=== PATIENT | male | born 1985 | race Hispanic/Latino ===

== ENCOUNTER 2021-04-08 03:43 | Emergency (ER) | payer SELFPAY ==
[2021-04-08 04:10] LABS: BASOPHILS % (AUTO) 0.6 % (0.0-5.0); EOSINOPHILS % (AUTO) 9.4 % (0.0-8.0); HEMATOCRIT 44.6 % (42-54); LYMPHOCYTES % (AUTO) 41.8 % (21.0-51.0); MEAN CORPUSCULAR HEMOGLOBIN 30.6 pg (27.0-33.0); MEAN CORPUSCULAR VOLUME 92.9 fL (79-99); MONOCYTES % (AUTO) 7.8 % (3.0-13.0); NEUTROPHILS % (AUTO) 40.1 % (40.0-77.0); PLATELET COUNT (AUTO) 301 K/uL (130-400); RED CELL DISTRIBUTION WIDTH 13.2 % (11.0-15.5); WHITE BLOOD COUNT (AUTO) 10.9 K/uL (4.8-10.8)
[2021-04-08 04:12] LABS: APPEARANCE,URINE Clear (CLEAR); BILIRUBIN,URINE Negative (NEGATIVE); COLOR,URINE Yellow (YELLOW); GLUCOSE, URINE (UA) Negative (NEGATIVE); KETONES,URINE Negative (NEGATIVE); LEUKOCYTE ESTERASE ,URINE Negative (NEGATIVE); NITRATE,URINE Negative (NEGATIVE); OCCULT BLOOD,URINE Trace (NEGATIVE); PH,URINE 5.5 (5.0-8.0); PROTEIN,URINE Negative (NEGATIVE)
[2021-04-08 04:26] LABS: CREATININE 1.2 mg/dL (0.5-1.5)
[2021-04-08 04:27] LABS: INR 0.91 (0.85-1.15)
[2021-04-08 04:28] LABS: PARTIAL THROMBOPLASTIN TIME 23.8 SEC (26.3-35.5)
[2021-04-08 04:30] LABS: ALBUMIN 3.6 g/dL (3.5-5.0); BILIRUBIN,TOTAL 0.4 mg/dL (0.2-1.0); TOTAL PROTEIN, SERUM 7.2 g/dL (6.0-8.3)
[2021-04-08] MEDS ORDERED: PANTOPRAZOLE 40 MG/VIAL ONE (04:31)
[2021-04-08] MEDS ORDERED: FAMOTIDINE/PF 20 MG/2 ML VIAL IV ONE (04:31)
[2021-04-08] MEDS ORDERED: METOCLOPRAMIDE 10 MG/2 ML VIAL ONE (04:31)
[2021-04-08] MEDS ORDERED: ONDANSETRON HCL 4 MG/2 ML VIAL ONE (04:31)
== END 2021-04-08 06:48 | disposition home or self-care (01) ==
LOC: EDH 03:43
DX: K29.00 Acute gastritis without bleeding (principal); E86.0 Dehydration; Z72.0 Tobacco use
CPT/HCPCS: 36415; 76705; 80053; 81003; 83605; 83690; 85025; 85610; 85730; 96361; 96374; 96375; 99284; C9113; J2405; J2765; J3490